=== PATIENT | female | born 1995 ===

== ENCOUNTER 2021-04-27 00:17 | Emergency (ER) | payer OTHER, SELFPAY ==
--- NOTE | ~2021-04-27 | XR_ITS ---
EXAMINATION: XR CHEST CLINICAL INFORMATION: Cough COMPARISON: 09/17/2016 TECHNIQUE: 2 views of the chest were obtained. FINDINGS: The lungs are clear with no focal consolidation. No evidence of pneumothorax, pulmonary edema, or pleural effusions. The cardiomediastinal silhouette is unremarkable. No acute osseous findings. XR/XR chest 2V IMPRESSION: No acute cardiopulmonary findings.
[2021-04-27 00:19] VITALS: BP 114/72; PULSE 112; RESP 24; TEMP 37.6; O2SAT 99; BMI 33.2
[2021-04-27] MEDS: predniSONE 20 MG TABLET 40 MG PO (01:20)
[2021-04-27] MEDS: Albuterol Sulfate 90 MCG 8 GM INHALER 4 PUFF INHALE (01:20)
[2021-04-27 01:22] LABS: COVID-19 Test Negative (Negative); IDNOW Serial# 9DD0AD1C
--- NOTE | 2021-04-27 01:34 | ED_ITS ---
HPI - Asthma General Chief Complaint: Dyspnea Stated Complaint: Trouble breathing, asthma Time Seen by Provider: 04/27/21 00:40 Source: patient Mode of arrival: ambulatory History of Present Illness HPI Narrative: 25-year-old female with history of asthma presents with increasing shortness of breath accompanied with cough for the past 2-3 days and reports corresponding chills but otherwise denies any GI or symptoms. She states that she has not received either the flu or COVID-19 vaccines. Related Data Previous Rx's Medication Instructions Recorded albuterol sulfate 2.5 mg (3 mL) INHALATION Q6H PRN 06/21/20 30 Days #360 ml nebulizers #1 ea 06/27/20 prednisone 10 mg tablet 10 mg PO DAILY 9 Days #18 tab 06/27/20 albuterol sulfate 90 mcg/actuation 1 puff PO QID #8.5 g 08/06/20 aerosol inhaler (ProAir HFA) fluticasone propionate 100 1 inh PO BID #60 cap 09/26/20 mcg/actuation blister powder for inhalation (Flovent Diskus) prednisone 20 mg tablet 40 mg PO DAILY 4 Days #8 tab 04/27/21 Allergies Allergy/AdvReac Type Severity Reaction Status Date / Time No Known Allergies Allergy Verified 06/27/20 16:07 [No Known Allergies*] Review of Systems Review of Systems: Pertinent positives and negatives as stated in HPI and 10 point review of systems is otherwise negative. [facility] Past Medical History Source: nursing notes reviewed Social History Social History Alcohol intake: never Advance Directives: No Advance Directives Information Provided: Yes Patient : No Physical Exam Vital Signs: Vital Signs: Last Vital Signs Temp 99.7 F 04/27/21 00:19 Pulse 130 H 04/27/21 03:04 Resp 22 H 04/27/21 03:04 BP 123/58 L 04/27/21 02:34 Pulse Ox 100 04/27/21 02:34 BMI result Body Mass Index 33.2 VITAL SIGNS: Reviewed. GENERAL: Well developed, well nourished, in no acute distress. HEAD: Normocephalic/atraumatic EYES: PERRLA, EOMI OROPHARYNX: no oral lesions noted, posterior pharynx clear NECK: Supple, no adenopathy LUNGS: Good inspiratory effort, bilateral expiratory wheeze noted, tachypnea. SpO2<99> CARDIOVASCULAR: Regular rate and rhythm without noted murmurs ABDOMEN: Soft, non-tender, non-distended with bowel sounds. No rigidity. No guarding. No palpable masses or hernias noted NEUROLOGIC: Alert and oriented x 4. Course Course Course Narrative: 25-year-old female with history and clinical presentation consistent with asthma exacerbation and received 2 hour long albuterol in nebulized treatments after confirmation negative COVID-19 test. On review of chest x-ray there are no acute findings and on re-evaluation patient reports significant improvement in her respiratory status. She is otherwise discharged home in stable condition on a short course of steroids. MDM - Asthma Lab Data Labs: Lab Results 04/27/21 Range/Units 00:54 COVID-19 ([facility]) Negative (Negative) COVID-19 Clin Com See Note Discharge Plan Discharge Clinical Impression: Asthma with exacerbation, Lab test negative for COVID-19 virus Patient Disposition: Home, Self-Care Instructions: Asthma (ED) Additional Instructions: 1. Resume all home medications as prescribed. Recommend using your rescue inhaler every 4 hours for the next 24 hours to help with the resolution of your symptoms. Return to the ER for worsening symptoms. Prescriptions: New prednisone 20 mg tablet 40 mg PO DAILY 4 Days Qty: 8 RF: 0 No Action albuterol sulfate 2.5 mg /3 mL (0.083 %) solution for nebulization 2.5 mg inhalation Q6H PRN (Reason: shortness of breath or wheezing) 30 Days Qty: 360 RF: 0 albuterol sulfate [ProAir HFA] 90 mcg/actuation HFA aerosol inhaler 1 puff PO QID Qty: 8.5 RF: 0 fluticasone propionate [Flovent Diskus] 100 mcg/actuation blister with device 1 inh PO BID Qty: 60 RF: 1 prednisone 10 mg tablet 10 mg PO DAILY 9 Days Qty: 18 RF: 0 (DME) nebulizers Misc See Rx Instructions .ROUTE .MEDSUPPLY Qty: 1 RF: 0
[2021-04-27] MEDS: Albuterol Sulfate (0.083%) 2.5 MG/3 ML VIAL.NEB 10 MG INHALE ×2 (01:58→03:02)
[2021-04-27 01:59] VITALS: PULSE 113; RESP 20; O2SAT 99
[2021-04-27 02:34] VITALS: BP 123/58; PULSE 122; RESP 19; O2SAT 100
[2021-04-27 03:04] VITALS: PULSE 130; RESP 22; O2SAT 98
== END 2021-04-27 04:29 | disposition home or self-care (01) ==
PROVIDERS: Emergency Provider Student in an Organized Health Care Education/Training Program
DX: J45.901 Unspecified asthma with (acute) exacerbation (principal); R06.02 Shortness of breath; R79.89 Other specified abnormal findings of blood chemistry; Z20.822 Contact with and (suspected) exposure to COVID-19; Z79.899 Other long term (current) drug therapy
CPT/HCPCS: 36415; 71046; 87635; 94640; 94644; 94645; 99283; 99285

== ENCOUNTER 2021-07-27 17:07 | Emergency (ER) | payer OTHER, SELFPAY ==
[2021-07-27 17:14] VITALS: BP 125/70; PULSE 79; RESP 16; TEMP 36.9; O2SAT 97; BMI 34.3
--- NOTE | 2021-07-27 17:58 | ED.EAR ---
HPI - Ear Problem General Chief complaint: Ear Problems <SHAWN Yao Last Filed: 07/27/21 18:23> Stated complaint: left ear pain, loss of hearing <SHAWN Yao Last Filed: 07/27/21 18:23> Time Seen by Provider: 07/27/21 17:52 <SHAWN Yao Last Filed: 07/27/21 18:23> Source: patient and family <SHAWN Yao Last Filed: 07/27/21 18:23> Mode of arrival: ambulatory <SHAWN Yao Last Filed: 07/27/21 18:23> Limitations: no limitations <SHAWN Yao Last Filed: 07/27/21 18:23> History of Present Illness HPI Narrative: 25-year-old female with a past medical history of asthma presenting to the ED with complaints of left ear pain/decreased hearing/ring to the left ear for the past 2 weeks worse today. Reports that she was seen at [facility] was prescribed Levaquin for a week and she took as prescribed although no symptomatic relief. She denies any fevers, chills, dizziness, headache, neck pain/stiffness, trouble swallowing or breathing, sore throat, chest pain or shortness of breath, cough, sputum production, loss of taste or smell, nausea/vomiting/diarrhea constipation, abdominal pain, dysuria, rashes, recent travel, recent illness, recent trauma, recent swimming, recent scuba diving, recent plane flight or any other symptoms complaints or concerns at this time. <SHAWN Yao Last Filed: 07/27/21 18:23> MD Complaint: ear pain and decreased hearing <SHAWN Yao Last Filed: 07/27/21 18:23> Location: left ear <SHAWN Yao Last Filed: 07/27/21 18:23> Duration: constant <SHAWN Yao Last Filed: 07/27/21 18:23> Severity: moderate <SHAWN Yao Last Filed: 07/27/21 18:23> Relieving factors: nothing <SHAWN Yao Last Filed: 07/27/21 18:23> Exacerbating factors: palpation <SHAWN Yao Last Filed: 07/27/21 18:23> Discharge from ear: no <SHAWN Yao Last Filed: 07/27/21 18:23> Associated symptoms ear: decreased hearing <SHAWN Yao Last Filed: 07/27/21 18:23> Related Data Home medications: Previous Rx's Medication Instructions Recorded albuterol sulfate 2.5 mg (3 mL) INHALATION Q6H PRN 06/21/20 30 Days #360 ml nebulizers #1 ea 06/27/20 albuterol sulfate 90 mcg/actuation 1 puff PO QID #8.5 g 08/06/20 aerosol inhaler (ProAir HFA) fluticasone propionate 100 1 inh PO BID #60 cap 09/26/20 mcg/actuation blister powder for inhalation (Flovent Diskus) cefdinir 300 mg capsule 300 mg PO BID 10 Days #20 cap 07/27/21 levofloxacin 500 mg tablet 500 mg PO DAILY 7 Days #7 tab 07/27/21 ofloxacin 0.3 % ear drops 10 drp OTIC (EAR) LEFT DAILY 10 07/27/21 Days ml <SHAWN Yao Last Filed: 07/27/21 18:23> Allergies/adverse reactions: Allergies Allergy/AdvReac Type Severity Reaction Status Date / Time No Known Allergies Allergy Verified 07/27/21 17:14 [No Known Allergies*] <SHAWN Yao Last Filed: 07/27/21 18:23> Review of Systems Review of Systems: Constitutional : No Weight loss, No Fever, No Chills, No Night Sweats, No Fatigue, No Malaise ENT/Mouth : + to left ear Hearing loss, + left Ear Pain, No Nasal Congestion, No Sinus Pain, No Hoarseness, No sore throat, No Rhinorrhea, No Swallowing Difficulty Eyes: No Eye Pain, No Swelling, No Redness, No Foreign Body, No Discharge, No Vision Changes Cardiovascular : No Chest Pain, No SOB, No Dyspnea on Exertion, No Orthopnea, No Edema, No Palpitations Respiratory : No Cough, No Sputum, No Wheezing, No Smoke Exposure, No Dyspnea Gastrointestinal : No Nausea, No Vomiting, No Diarrhea, No Constipation, No abdominal Pain, No Hematochezia, No Melena Genitourinary : no irregular bleeding, No Dysuria, No Urinary Frequency, No Hematuria, No Urinary Incontinence, No Urgency, No Flank Pain, No Urinary Flow Changes, No Hesitancy Musculoskeletal : No joint pain, No Myalgias, No Joint Swelling Skin : No Skin Lesions, No rash Neuro : No Weakness, No Numbness, No Paresthesias, No Loss of Consciousness, No Dizziness, No Headache Psych : No Anxiety/Panic, No Depression, No SI/HI/AH/VH, No Social Issues, Heme/Lymph: No Bruising, No Bleeding,No Lymphadenopathy Endocrine : No Polyuria, No Polydipsia, No Temperature Intolerance <SHAWN Yao - Last Filed: 07/27/21 18:23> Yes all other systems are reviewed and are negative <SHAWN Yao - Last Filed: 07/27/21 18:23> [facility] Past Medical History Attestation statement: The following information was validated with the patient. <SHAWN Yao - Last Filed: 07/27/21 18:23> Surgical History: Surgical History No pertinent past surgical history <SHAWN Yao - Last Filed: 07/27/21 18:23> Family History Family History: Family History Mother Diabetes Active asthma Father High blood pressure Diabetes Active asthma <SHAWN Yao - Last Filed: 07/27/21 18:23> Social History Social History: Social History Housing: House Alcohol intake: current Alcohol intake frequency: holidays/special occasions only Patient Tobacco Use Status: Never used Tobacco Second Hand Smoke Exposure: No Advance Directives: No Advance Directives Information Provided: No service: No Current occupational status: disabled Cognitive needs: No Hearing needs: No Vision needs: No <SHAWN Yao - Last Filed: 07/27/21 18:23> Physical Exam Vital Signs: Vital Signs: Last Vital Signs Temp 98.5 F 07/27/21 17:14 Pulse 79 07/27/21 17:14 Resp 16 07/27/21 17:14 BP 125/70 07/27/21 17:14 Pulse Ox 97 03/11/22 17:14 BMI result Body Mass Index 34.3 vital signs have been reviewed as normal and appeared to be correct. Blood pressure normal. Heart rate normal. Respiration rate normal. Temperature normal. Oxygen saturation normal. <SHAWN Yao - Last Filed: 07/27/21 18:23> Appearance: Alert. Oriented X3. No acute distress. Head: Normal external exam. Normocephalic. Atraumatic. Eyes: PERRLA. EOMI. Conjunctiva and sclera normal. Eyelids normal. ENT: Right external ear canal within normal limits no tenderness off patient. Tympanic membrane to the right ear canal within normal limits. Patient with tenderness up patient with manipulation of the pinna and tragus of the left ear. She does have erythema and edema to the left ear canal and her tympanic membrane is erythematous/bulging with loss of normal landmarks and decreased light reflex consistent with otitis media. Bilateral tympanic membranes are intact not perforated. Pharynx normal. Uvula midline. Moist mucous membranes. No lesions/ulcerations or masses noted on the tongue. Normal voice. No trismus noted. No drooling noted. No muffled voice noted. Neck: Normal inspection. Neck supple. FROM. No adenopathy. Thyroid Normal. No tracheal deviation noted. No crepitus is noted. No meningeal signs. No neck mass noted. CVS: Normal heart rate and rhythm. Heart sound normal. Pulses normal throughout. No murmurs/rales/gallops. Respiratory: No respiratory distress. Painless inspiration. Breath sounds normal. No wheezes/rales/rhonchi noted. Chest nontender. No accessory muscle usage noted or decreased air movement noted. No signs of trauma. Back: Full range of motion noted. Skin: Skin warm and dry. Normal skin color. Normal skin turgor. No rashes/lesions/lacerations noted. Extremities:Extremities exhibit normal range of motion and nontender. Neuro: Oriented X 3. No motor deficit. No sensory deficit. Reflexes normal. Normal steady gait. No focal neuro deficits noted. CN's II-XII intact bilaterally? Vascular: + radial pulses/+ 2 distal pedal pulses/+2 dorsalis pedis b/l. Normal cap refill. No cyanosis noted to upper extremity nails and lower extremity toes nails. <SHAWN Yao - Last Filed: 07/27/21 18:23> Course Course Course Narrative: 25-year-old female with a past medical history of asthma presenting to the ED with complaints of left ear pain/decreased hearing/ring to the left ear for the past 2 weeks worse today. Reports that she was seen at [facility] was prescribed Levaquin for a week and she took as prescribed although no symptomatic relief. She denies any fevers, chills, dizziness, headache, neck pain/stiffness, trouble swallowing or breathing, sore throat, chest pain or shortness of breath, cough, sputum production, loss of taste or smell, nausea/vomiting/diarrhea constipation, abdominal pain, dysuria, rashes, recent travel, recent illness, recent trauma, recent swimming, recent scuba diving, recent plane flight or any other symptoms complaints or concerns at this time. On exam patient is noted to have a left otitis externa and left otitis media. Tympanic membranes are intact. Not perforated. Therefore at this time will DC home with Augmentin along with ear nose and throat referral and instructions return if any new or worsening symptoms to follow up with primary care provider as well. Patient understands agrees with this plan. <SHAWN Yao - Last Filed: 07/27/21 18:23> [facility] - Ear Medical Records Attestation: I reviewed the patient's medical records. <SHAWN Yao - Last Filed: 07/27/21 18:23> Discharge Plan Discharge Clinical Impression: Otitis externa, Otitis media <SHAWN Yao - Last Filed: 07/27/21 18:23> Patient Disposition: Home, Self-Care <SHAWN Yao - Last Filed: 07/27/21 18:23> Instructions: Otitis Externa (ED), Ear Infection (ED) <SHAWN Yao Last Filed: 07/27/21 18:23> Prescriptions: New ofloxacin 0.3 % drops 10 drp otic (ear) left DAILY 10 Days 0RF cefdinir 300 mg capsule 300 mg PO BID 10 Days Qty: 20 0RF No Action albuterol sulfate 2.5 mg /3 mL (0.083 %) solution for nebulization 2.5 mg inhalation Q6H PRN (Reason: shortness of breath or wheezing) 30 Days Qty: 360 0RF albuterol sulfate [ProAir HFA] 90 mcg/actuation HFA aerosol inhaler 1 puff PO QID Qty: 8.5 0RF fluticasone propionate [Flovent Diskus] 100 mcg/actuation blister with device 1 inh PO BID Qty: 60 1RF (DME) nebulizers Misc See Rx Instructions .ROUTE .MEDSUPPLY Qty: 1 0RF Rx Instructions: As directed levofloxacin 500 mg tablet 500 mg PO DAILY 7 Days Qty: 7 0RF <SHAWN Yao - Last Filed: 07/27/21 18:23> Referrals: Abhijit Milian PA-C [Primary Care Provider] - 2 days Marcin Trotter [Physician] - 2 days <SHAWN Yao - Last Filed: 07/27/21 18:23> Stand Alone Forms: Work/School Release <SHAWN Yao - Last Filed: 07/27/21 18:23> Interventions: ED Discharge Assessment Last Done: 07/27/21 18:26 <SHAWN Yao - Last Filed: 07/27/21 18:23> Discharge Date/Time: 07/27/21 18:27 <SHAWN Yao - Last Filed: 07/27/21 18:23> Print Language: Upper Sorbian <SHAWN Yao - Last Filed: 07/27/21 18:23>
== END 2021-07-27 18:27 | disposition home or self-care (01) ==
LOC: HO.ED 18:13
PROVIDERS: Emergency Provider Emergency Medicine; PCP Physician Assistant
DX: H66.92 Otitis media, unspecified, left ear (principal); H60.92 Unspecified otitis externa, left ear
CPT/HCPCS: 99283

== ENCOUNTER 2024-03-11 09:47 | Outpatient (AMB) | payer OTHER, SELFPAY ==
--- NOTE | 2024-03-11 10:11 | MHC.OFFWIV ---
Intake Vital Signs 03/11/24 10:14 Height 5 ft Weight 178 lb BMI 34.8 BP 126/80 Blood Pressure Location Rt brachial Position Sitting Pulse 74 Pulse Source Pulse Oximeter Pulse Oximetry (%) 98 Oxygen Delivery Method Room Air Intake Visit Reasons: ACTIVITIES THERAPIST-rash lower belly Intake Note: Patient here for rash under belly that has been present for about a week or so. Patient Tobacco Use Status: Never used Tobacco Allergies No Known Allergies [No Known Allergies*] Allergy (Verified 03/11/24 10:14) Do you need a note to return to daycare/school/sports/work: No HPI HPI Comments History of Present Illness Details Patient is a 28-year-old female complaining of a rash and the under part of her belly, in the fold. She states it has been there for about a week and it is a little bit itchy and it seems to be spreading. She has not tried putting any medications on it because she did not want to make it worse. She denies any fevers or bug bites. PENDING SALE TO [facility] Surgical History No pertinent past surgical history Family History Mother Diabetes Active asthma Father High blood pressure Diabetes Active asthma Social History Housing: House Alcohol intake: current Alcohol intake frequency: holidays/special occasions only Patient Tobacco Use Status: Never used Tobacco Second Hand Smoke Exposure: No service: No Current occupational status: disabled Cognitive needs: No Hearing needs: No Vision needs: No Review of Systems Const All systems reviewed & are unremarkable except as noted in HPI and below Physical Exam Vital Signs: Last Vital Signs Pulse 74 03/11/24 10:14 BP 126/80 03/11/24 10:14 Pulse Ox 98 03/11/24 10:14 Oxygen Delivery Method Room Air 03/11/24 10:14 BMI result Body Mass Index 34.8 Const General: cooperative, healthy appearing, comfortable and no acute distress Orientation/consciousness: patient oriented x3 Limitations: no limitations HEENT Head: Yes normal to inspection Eyes General: appearance normal, both eyes and all related structures Resp Effort & Inspection: normal respiratory effort and able to speak in complete sentences Skin Other: Bottom fold of abdomen has a 4cm x 5cm area of erythema with some dried edges. No warmth, no induration, no ecchymosis Neuro General: patient oriented x3 Assessment & Plan Assessment & Plan (1) Tinea corporis: Code(s): B35.4 - Tinea corporis Plan: Likely a fungal rash, based on location and presentation. Recommended using [id number] clotrimazole for a few days. If this does not seem to be helping it, she should try hard cortisone because of could also be an allergic dermatitis, however this is less likely. If neither 1 of these treatments work, she should follow up with her PCP Plan See above Coding Level of Care Code Est Pt Level 3 (67299) Diagnoses Tinea corporis B35.4
[2024-03-11 10:14] VITALS: BP 126/80; PULSE 74; O2SAT 98; BMI 34.8
== END 2024-03-11 10:43 | disposition home or self-care (01) ==
PROVIDERS: PCP Physician Assistant; Visit Provider Physician Assistant
DX: B35.4 Tinea corporis (principal)

== ENCOUNTER → 2024-03-11 09:47 | Outpatient (BNVA) | payer OTHER, SELFPAY | PROVIDERS: PCP Physician Assistant; Visit Provider Physician Assistant | DX: B35.4 Tinea corporis (principal) | CPT/HCPCS: 99212 ==

== ENCOUNTER 2024-03-18 09:57 | Emergency (ER) | payer OTHER, SELFPAY ==
[2024-03-18 10:04] VITALS: BP 129/72; PULSE 98; RESP 16; TEMP 36.8; O2SAT 100; BMI 37.6
--- NOTE | 2024-03-18 11:03 | ED_ITS ---
HPI - General Adult General Chief complaint: General Medical Stated complaint: abd infection-cream unsuccessful Time Seen by Provider: 03/18/24 10:55 Source: patient Mode of arrival: ambulatory Limitations: no limitations History of Present Illness ED Provider: EMI JAIN PA-C HPI narrative: 28 year old female with no significant past medical history presents to the ED today for evaluation of rash to lower abdomen x2 weeks. Patient was seen at [facility] on 03/11 for same, discharged home with clotrimazole ointment which she has been applying daily. States this helps relieve the itching however the rash is unchanged. Does not appear to be spreading. Denies drainage from the rash. Denies fever, chills, N/V. Denies new detergents, soaps, lotions. Besides the clotrimazole, denies any new medications or antibiotics. Denies recent tick or insect bites. Vaccinations up-to-date. Denies concern for STI. Related Data Previous Rx's ?Medication ?Instructions ?Recorded albuterol sulfate 2.5 mg/3 mL 2.5 mg (3 mL) inhalation Q6H PRN 06/21/20 (0.083 %) solution for nebulization shortness of breath or wheezing 30 days #360 mL nebulizers #1 ea 06/27/20 albuterol sulfate 90 mcg/actuation 1 puff PO QID #8.5 grams 08/06/20 aerosol inhaler (ProAir HFA) fluticasone propionate 100 1 inh PO BID #60 caps 09/26/20 mcg/actuation blister powder for inhalation (Flovent Diskus) cefdinir 300 mg capsule 300 mg PO BID Otitis media 10 days 07/27/21 #20 caps fluticasone propionate 50 2 spray intranasal DAILY 30 days 08/01/21 mcg/actuation nasal #16 grams spray,suspension (Flonase Allergy Relief) terbinafine HCl 250 mg tablet 250 mg PO DAILY 2 weeks #14 tabs 03/18/24 Allergies Allergy/AdvReac Type Severity Reaction Status Date / Time No Known Allergies Allergy Verified 03/18/24 10:05 [No Known Allergies*] Review of Systems 2 Review of Systems: Constitutional: No fever, chills, fatigue, night sweats, weight changes ENT/Mouth: No ear pain, hearing loss, nasal congestion, sinus pain, rhinorrhea, sore throat Eyes: No eye pain, swelling, redness, vision changes, discharge Cardio: No chest pain, palpitations, BROWN, orthopnea, peripheral edema Pulm: No SOB, cough, sputum, wheezing, dyspnea, hemoptysis GI: No nausea, vomiting, hematemesis, abdominal pain, diarrhea, constipation, hematochezia, melena : No irregular bleeding, dysuria, frequency, urgency, hesitancy, hematuria, flank pain, urinary flow changes, urinary incontinence or retention MSK: No back pain, neck pain, joint pain, myalgias Skin: No lesions, +rash to pannus Neuro: No weakness, numbness, paresthesias, LOC, dizziness, headache Psych: No anxiety/panic, depression, SI/HI, AH/VH All other systems reviewed and are negative. [facility] Past Medical History Attestation statement: The following information was validated with the patient. Source: old records reviewed and nursing notes reviewed Surgical History No pertinent past surgical history Family History Family History Mother Diabetes Active asthma Father High blood pressure Diabetes Active asthma Social History Social History Housing: House Alcohol intake: current Alcohol intake frequency: holidays/special occasions only Patient Tobacco Use Status: Never used Tobacco Second Hand Smoke Exposure: No Advance Directives: No Advance Directives Information Provided: Yes Do you have a plan to hurt others: No Plan service: No Current occupational status: disabled Cognitive needs: No Hearing needs: No Vision needs: No Physical Exam ED Vital Signs: Vital Signs - 24 hr 03/18/24 10:04 03/18/24 12:15 Temperature 98.2 F 98.2 F Pulse Rate 98 98 Respiratory Rate 16 16 Blood Pressure 129/72 129/72 Pulse Oximetry 100 100 Oxygen Delivery Method Room Air Room Air BMI result Body Mass Index 37.6 Vital signs stable, afebrile General: Well appearing, in no acute distress. Skin: see below of pannicular skin fold. no sloughing. nondermatomal pattern. no target lesions. spares palms/soles/webbed spaces/mucous membranes. Head: Normocephalic, atraumatic. EENT: Hearing is intact b/l. PERRLA. Moist mucous membranes.? Neck: Supple without LAD Cardiac: Chest wall symmetric. RRR Lungs: Normal respiratory effort without accessory muscle use. CTA bilaterally.? Abdomen: see above. Soft, non-tender, non-distended. No rebound tenderness or guarding. Back: No midline spinous or paraspinal tenderness. No step off deformity. Ext: Upper and lower extremities atraumatic, without tenderness, deformity, swelling or erythema. Full ROM throughout. Neuro: AOx3. Normal speech. Ambulating with steady gait. Psych: Appropriate mood and affect. Responds appropriately to questions. Medical Decision Making Medical Decision Making MDM Narrative: 28 year old female with no significant past medical history presents to the ED today for evaluation of rash to lower abdomen x2 weeks. Vital signs stable. Afebrile. There is an ertyematous rash noted to right pannicular skin fold. no sloughing. no target lesions. nondermatomal pattern. Spares palms, soles, mucous membranes and web spaces. Does not involve genitalia. No inguinal LAD. Rash is consistent with fungal infection of skin fold. Differential diagnosis includes contact/atopic/eczematous dermatitis, psoriasis. History and exam findings not consistent with lyme/tick bourne illness, herpes zoster/simplex, scabies, HFM,? dangerous etiologies of rash such as SJS/TEN, or secondary dangerous causes such as petechial rashes from thrombocytopenia or rickettsial infections.?No concern for cellulitis. Plan at this time is to treat symptomatically, instruct to follow up with PCP or derm PRN. Given patient has been on a topical antifungal cream x1 week without improvement, will switch to oral antifungal. Differential Diagnosis Differential Diagnoses: The differential diagnosis associated with the presentation includes as above. Admission/Observation not indicated. Prescription Management I considered prescription management with: Other (terbinafine) Social Determinants Patient?s care significantly limited by Social Determinants of Health including: Other Social Determinant of Health Critical Care Time Critical Care Time Critical Care Time: No Discharge Plan Discharge Clinical Impression: Fungal infection of skin Patient Disposition: Home, Self-Care Instructions: Skin Yeast Infection (ED) Additional Instructions: Your physical exam is consistent with a fungal skin infection. Please discontinue use of topical anti-fungal. Instead, an oral antifungal has been sent to your pharmacy. Take this as prescribed daily for the next two weeks. Make sure you keep the area clean and dry. You may apply power to the area to help absorb moisture. Follow up with PCP. Return with new or worsening symptoms. In the case of an emergency call 911. Prescriptions: New terbinafine HCl 250 mg tablet 250 mg PO DAILY 14 Days Qty: 14 0RF No Action albuterol sulfate 2.5 mg /3 mL (0.083 %) solution for nebulization 2.5 mg inhalation Q6H PRN (Reason: shortness of breath or wheezing) 30 Days Qty: 360 0RF albuterol sulfate [ProAir HFA] 90 mcg/actuation HFA aerosol inhaler 1 puff PO QID Qty: 8.5 0RF fluticasone propionate [Flovent Diskus] 100 mcg/actuation blister with device 1 inh PO BID Qty: 60 1RF cefdinir 300 mg capsule 300 mg PO BID 10 Days Qty: 20 0RF (DME) nebulizers Misc See Rx Instructions .ROUTE .MEDSUPPLY Qty: 1 0RF Rx Instructions: As directed fluticasone propionate [Flonase Allergy Relief] 50 mcg/actuation spray,suspension 2 spray intranasal DAILY 30 Days Qty: 16 1RF Rx Instructions: administer into each nostril Referrals: Abhijit Milian PA-C [Primary Care Provider] - Interventions: ED Discharge Assessment Last Done: 03/18/24 12:15 Discharge Date/Time: 03/18/24 12:16 Print Language: Divehi
[2024-03-18 12:15] VITALS: BP 129/72; PULSE 98; RESP 16; TEMP 36.8; O2SAT 100
== END 2024-03-18 12:16 | disposition home or self-care (01) ==
PROVIDERS: Emergency Provider Emergency Medicine Emergency Medical Services; PCP Physician Assistant
DX: B36.9 Superficial mycosis, unspecified (principal); R21 Rash and other nonspecific skin eruption
CPT/HCPCS: 99282; 99283

== ENCOUNTER 2024-03-22 14:35 | Outpatient (AMB) | payer OTHER, SELFPAY ==
[2024-03-22 14:37] VITALS: BP 128/80; PULSE 102; O2SAT 99; BMI 37.1
--- NOTE | 2024-03-22 14:37 | A.OFFPC_ITS ---
Vital Signs 03/22/24 14:37 Height 5 ft Weight 190 lb BMI 37.1 BP 128/80 Blood Pressure Location Lt brachial Position Sitting Pulse 102 H Pulse Source Pulse Oximeter Pulse Oximetry (%) 99 Oxygen Delivery Method Room Air Intake Visit Reasons: rash Intake Note: pt c/o rash all over body [id number] with no relief Manager Assessment Required: No Allergies No Known Allergies [No Known Allergies*] Allergy (Verified 03/22/24 14:48) Medication List - Last Reconciled 03/22/24 by Rach Barnes PA-C albuterol sulfate 2.5 mg (3 mL) inhalation Q6H PRN 30 days albuterol sulfate 90 mcg/actuation (ProAir HFA) 1 puff PO QID fluticasone propionate 100 mcg/actuation (Flovent Diskus) 1 inh PO BID fluticasone propionate 50 mcg/actuation (Flonase Allergy Relief) 2 sprays intranasal DAILY 30 days nebulizers As directed terbinafine HCl 250 mg PO DAILY 2 weeks Tobacco use date assessed: 03/22/24 Dental Screening Dental Screen Date: 03/22/24 HPI rash HPI Details 28-year-old female with past medical his tory of asthma last seen by [facility] July 2021 coming in for acute problem. In review of the notes, patient was seen in [facility] 03/18/2024 for rash to the lower abdomen x2 weeks and was seen a week prior by urgent care given clotrimazole ointment and discharged home at that time. Patient had been using clotrimazole cream without good relief patient was given oral antifungal medication terbinafine and discharged home. She has been on the terbinafine for 3 days and feels has been slightly improving. The rash on her abdomen had spread to her bilateral antecubital fossa and dorsal aspect of the hands. The rash is itchy and uncomfortable but denies any drainage from the lesions or fevers PFSH Surgical History No pertinent past surgical history Family History Mother Diabetes Active asthma Father High blood pressure Diabetes Active asthma Social History Housing: House Alcohol intake: current Alcohol intake frequency: holidays/special occasions only Patient Tobacco Use Status: Never used Tobacco Second Hand Smoke Exposure: No service: No Current occupational status: disabled Cognitive needs: No Hearing needs: No Vision needs: No Questionnaire Thrive Questionnaire Date Thrive assessed: 07/17/21 AUDIT C Alcohol Use Questionnaire (AUDIT-C) 1. How often do you have a drink containing alcohol?: Monthly or less 2. How many drinks containing alcohol do you have on a typical day when you are drinking?: 1 or 2 3. How often do you have six or more drinks on one occasion?: Never Total Score: 1 Score Reviewed/Action Taken: No MERCEDES-7 AMB Questionnaire MERCEDES-7 Date MERCEDES - 7 assessed: 07/17/21 Source: Developed by Drs. Bob Taylor, Anu Farr, Bryson Kemp and colleagues, with an educational maldonado from [employer]. Review of Systems Const Denies body aches, Denies chills and Denies fever(s) Eyes Reports no additional complaints Card Denies chest pain and Denies dyspnea Resp Denies dyspnea GI Denies abdominal pain Reports no additional complaints Musc Reports no additional complaints and Denies abnormal gait Skin/Breast Reports system reviewed and no additional complaints, except as documented Neuro Denies abnormal gait Psych Reports no additional complaints Physical exam (Primary Care) Vital Signs: Last Vital Signs Pulse 102 H 03/22/24 14:37 BP 128/80 03/22/24 14:37 Pulse Ox 99 03/22/24 14:37 Oxygen Delivery Method Room Air 03/22/24 14:37 BMI result Body Mass Index 37.1 Tobacco/Smoking Status: Tobacco use Status Tobacco use date assessed 03/22/24 03/22/24 14:38 Patient Tobacco Use Status Never used Tobacco 03/22/24 14:38 Thrive Assessment: Date of Thrive Assessment Date Thrive assessed 07/17/21 03/22/24 14:38 Const General: cooperative, healthy appearing, comfortable and no acute distress Orientation/consciousness: patient oriented x3 HENMT Head: Yes normocephalic Ears: hearing grossly normal bilaterally General nose exam: Normal external nose present Eyes General: appearance normal, both eyes and all related structures Conjunctivae: conjunctivae normal Neck Neck: Yes full ROM and Yes no lymphadenopathy Resp Effort & Inspection: normal respiratory effort Auscultation: clear to auscultation bilaterally, no crackles, no rales, no rhonchi and no wheezes Cardio Rate: regular rate Rhythm: regular rhythm Skin Other: beefy, red, well demarcated rash with sattelite lesions on the lower abdomen and into the groin and thighs. Also has scattered areas of dry, flaky rash on the dorsal aspect of the hands and bilateral antecubital fossa. Neuro General: patient oriented x3 Gait exam (Neuro): Normal gait present Extrem General: Yes normal to inspection, Yes full ROM and No edema Psych Affect: normal affect Attitude: cooperative Insight: Good insight present (Psych) Judgement: Good judgement present (Psych) Coding Level of Care Code Est Pt Level 3 (11378) Diagnoses Rash R21 Assessment & Plan Assessment & Plan (1) Rash: Code(s): R21 - Rash and other nonspecific skin eruption Category: Medical Plan: Patient has beefy red rash on the abdomen consistent with fungal infection. Cora ent is currently taking Terbinifine and advised to have liver labs drawn. Also given Nystatin powder to use while taking this medication. IF rash does not clear advised to follow up for repeat evaluation. For hands and arms advised to use Aquaphor or Vaseline and if does not resolve can consider topical steroid. Plan This note was constructed using voice recognition software. While every effort has been made to ensure accuracy and porter luggage, still areas may have been included sometimes these areas may affect the content or meeting of the given symptoms. Total time spent caring for the patient today was 20 minutes. This includes time spent before the visit reviewing the chart, time spent during the visit, and time spent after the visit and documentation. Orders: Orders Comprehensive Met. Panel Today Z00.00 - Encounter for general adult medical examination without abnormal findings Medications: New nystatin 1 appl topical DAILY 30 grams 0RF
== END 2024-03-22 15:16 | disposition home or self-care (01) ==
LOC: HO.HMCH 14:36
PROVIDERS: PCP Physician Assistant
DX: R21 Rash and other nonspecific skin eruption (principal)

== ENCOUNTER 2024-03-22 14:35 | Outpatient (REF) | payer OTHER, SELFPAY ==
[2024-03-22 16:34] LABS: Alanine Aminotransferase 15 U/L (0-31); Albumin Level 4.3 g/dL (3.5-5.0); Alkaline Phosphatase 78 U/L (39-117); Anion Gap 13 (12-20); Aspartate Amino Transferase 18 U/L (5-31); Bilirubin Total 0.4 mg/dL (0.0-1.0); Blood Urea Nitrogen 8 mg/dL (9-16); Calcium 9.6 mg/dL (8.4-10.2); Carbon Dioxide 24 mmol/L (22-29); Chloride 107 mmol/L (96-108); Estimated Glomerular Filt Rate > 60; Glucose Random 100 mg/dL (60-115); Potassium 3.5 mmol/L (3.3-5.1); Sodium 140 mmol/L (135-145); Total Protein 7.6 g/dL (6.5-8.0)
== END 2024-03-22 14:36 | disposition home or self-care (01) ==
LOC: HO.LAB 14:35
PROVIDERS: PCP Physician Assistant
DX: Z00.00 Encounter for general adult medical examination without abnormal findings (principal); R21 Rash and other nonspecific skin eruption
CPT/HCPCS: 36415; 80053; 99212

== ENCOUNTER 2024-04-01 15:25 | Outpatient (AMB) | payer OTHER, SELFPAY ==
[2024-04-01 15:26] VITALS: BP 126/70; PULSE 77; O2SAT 97; BMI 37.1
--- NOTE | 2024-04-01 15:26 | A.OFFPC_ITS ---
Vital Signs 04/01/24 15:26 Height 5 ft Weight 190 lb BMI 37.1 BP 126/70 Blood Pressure Location Lt brachial Position Sitting Pulse 77 Pulse Source Pulse Oximeter Pulse Oximetry (%) 97 Oxygen Delivery Method Room Air Intake Visit Reasons: [facility] 03/22 rash Intake Note: Patient is here for hospital discharge follow up. Patient was discharged from [facility] on 03/22/24 Allergies No Known Allergies [No Known Allergies*] Allergy (Verified 04/01/24 15:27) Medication List - Last Reconciled 04/01/24 by Rach Barnes PA-C albuterol sulfate 2.5 mg (3 mL) inhalation Q6H PRN 30 days albuterol sulfate 90 mcg/actuation (ProAir HFA) 1 puff PO QID cephalexin 500 mg PO TID cetirizine 10 mg PO DAILY PRN fluticasone propionate 100 mcg/actuation (Flovent Diskus) 1 inh PO BID fluticasone propionate 50 mcg/actuation (Flonase Allergy Relief) 2 sprays intranasal DAILY 30 days nebulizers As directed nystatin 1 appl topical DAILY terbinafine HCl 250 mg PO DAILY 2 weeks Tobacco use date assessed: 03/22/24 Dental Screening Dental Screen Date: 03/22/24 HPI [facility] 03/22 rash HPI Details 28-year-old female with past medical his tory of asthma last seen March 2024 coming in for acute problem. In review of the notes, patient was [place] [facility] and given terbinafine for worsening pruritic rash. She was seen in [facility] ED for this similar problem 03/24/2024 at that time was found to have cellulitis and switch to oral steroids and antibacterial agent and recommended dermatology referral. Patient states 2 days after being seen the rash spread to inner thighs other parts of the body. The prednisone given by [facility] helped with the rash and w as almost disappeared but since discontinuing the prednisone 4 days ago the rash has started to reappear. The rash is itchy and is not painful or draining. Cetirizine has been helping with the itchiness. [facility] Surgical History No pertinent past surgical history Family History Mother Diabetes Active asthma Father High blood pressure Diabetes Active asthma Social History Housing: House Alcohol intake: current Alcohol intake frequency: holidays/special occasions only Patient Tobacco Use Status: Never used Tobacco Second Hand Smoke Exposure: No service: No Current occupational status: disabled Cognitive needs: No Hearing needs: No Vision needs: No Questionnaire Thrive Questionnaire Date Thrive assessed: 04/01/24 I am a: Patient What is your living situation today?: I have a steady place to live Within the past 12 months, did the food you bought not last and you didn't have the money to get more?: Never true Within the past 12 months, did you worry whether your food would run out before you got money to buy more?: Never true Do you have trouble paying for medicines?: No Do you have trouble getting transportation to medical appointments?: No Do you have trouble paying your heating and electricity bill?: No Do you have trouble taking care of your child, family member or friend?: No Do you have trouble with day-to-day activities such as bathing, preparing meals, shopping, managing finances, etc.?: No Are you currently unemployed and looking for a job?: No Are you interested in more education?: No Please select the resources that you would like help with: None Currently or been in a relationship where the following occur: No concerns reported THRIVE Score: 0 AUDIT C Alcohol Use Questionnaire (AUDIT-C) 1. How often do you have a drink containing alcohol?: Monthly or less 2. How many drinks containing alcohol do you have on a typical day when you are drinking?: 1 or 2 3. How often do you have six or more drinks on one occasion?: Never Total Score: 1 Score Reviewed/Action Taken: No MERCEDES-7 AMB Questionnaire MERCEDES-7 Date MERCEDES - 7 assessed: 04/01/24 Source: Developed by Drs. Bob Taylor, Anu Farr, Bryson Kemp and colleagues, with an educational maldonado from [employer]. Review of Systems Const Denies body aches, Denies chills, Denies fever(s) and Denies poor appetite Eyes Reports no additional complaints ENT Reports no additional complaints Card Denies chest pain, Denies lightheadedness and Denies dyspnea Resp Denies dyspnea GI Denies abdominal pain, Denies nausea and Denies vomiting Reports no additional complaints Musc Reports no additional complaints and Denies abnormal gait Skin/Breast Details: Itchy rash on bilateral thighs, antecubital fossa and pubic area Neuro Denies abnormal gait Psych Reports no additional complaints Physical exam (Primary Care) Vital Signs: Last Vital Signs Pulse 77 04/01/24 15:26 BP 126/70 04/01/24 15:26 Pulse Ox 97 04/01/24 15:26 Oxygen Delivery Method Room Air 04/01/24 15:26 BMI result Body Mass Index 37.1 Tobacco/Smoking Status: Tobacco use Status Tobacco use date assessed 03/22/24 04/01/24 15:27 Patient Tobacco Use Status Never used Tobacco 04/01/24 15:27 Thrive Assessment: Date of Thrive Assessment Date Thrive assessed 04/01/24 04/01/24 15:27 Currently or been in a relationship where the following occur: No concerns reported Const General: cooperative, healthy appearing, comfortable and no acute distress Orientation/consciousness: patient oriented x3 HENMT Head: Yes normocephalic Ears: hearing grossly normal bilaterally General nose exam: Normal external nose present Eyes General: appearance normal, both eyes and all related structures Conjunctivae: conjunctivae normal Neck Neck: Yes full ROM and Yes no lymphadenopathy Resp Effort & Inspection: normal respiratory effort Auscultation: clear to auscultation bilaterally, no crackles, no rales, no rhonchi and no wheezes Cardio Rate: regular rate Rhythm: regular rhythm Skin Other: Multiple patches of raised, thickened, red and dry flaky rash on flexor services and pubic area. No drainage or warmth. General skin exam: no rashes or lesions noted Neuro General: patient oriented x3 Gait exam (Neuro): Normal gait present Extrem General: Yes normal to inspection, Yes full ROM and No edema Psych Affect: normal affect Attitude: cooperative Insight: Good insight present (Psych) Judgement: Good judgement present (Psych) Coding Level of Care Code Est Pt Level 3 (34362) Diagnoses Rash R21 Assessment & Plan Assessment & Plan (1) Rash: Code(s): R21 - Rash and other nonspecific skin eruption Category: Medical Plan: Rash looks most consistent with atopic dermatitis. Improved with steroids and cetirizine. Refilled cetirizine at this time to help with the pruritus. No evidence of infection at this time advised patient to continue to monitor her symptoms. We will trial topical steroid advised patient not to use his medication more than 2 weeks and avoid sensitive areas. Referral placed for Dermatology for further workup. Plan This note was constructed using voice recognition software. While every effort has been made to ensure accuracy and women's studies professor, still areas may have been included sometimes these areas may affect the content or meeting of the given symptoms. Total time spent caring for the patient today was 20 minutes. This includes time spent before the visit reviewing the chart, time spent during the visit, and time spent after the visit and documentation. Orders: Referrals Dermatology Referral R21 - Rash and other nonspecific skin eruption Medications: New cetirizine 10 mg PO DAILY 90 tabs 1RF triamcinolone acetonide 0.5% 1 appl topical BID 15 grams 0RF Discontinued terbinafine HCl Discontinued Reason: Patient no longer taking 250 mg PO DAILY 2 weeks 14 tabs 0RF
== END 2024-04-01 15:56 | disposition home or self-care (01) ==
DX: R21 Rash and other nonspecific skin eruption (principal)

== ENCOUNTER → 2024-04-01 15:25 | Outpatient (BNVA) | payer OTHER, SELFPAY | DX: R21 Rash and other nonspecific skin eruption (principal) | CPT/HCPCS: 99212 ==

== ENCOUNTER 2024-06-11 09:50 | Outpatient (REF) | payer OTHER, SELFPAY | END 2024-06-11 09:51 | disposition home or self-care (01) | LOC: HO.LAB 09:50 | PROVIDERS: Visit Provider Physician Assistant | DX: J45.21 Mild intermittent asthma with (acute) exacerbation (principal) | CPT/HCPCS: 99212 ==

== ENCOUNTER 2024-06-11 09:50 | Outpatient (REF) | payer OTHER, SELFPAY ==
[2024-06-11 16:23] LABS: Influenza A PCR NEGATIVE (Negative); Influenza B PCR NEGATIVE (Negative); Resp Syncy Virus RNA Qual PCR NEGATIVE (Negative); SARS COV2 PCR INHOUSE NEGATIVE (Negative)
== END 2024-06-11 09:51 | disposition home or self-care (01) ==
LOC: HO.LNP 09:50
PROVIDERS: Visit Provider Physician Assistant
DX: R09.89 Other specified symptoms and signs involving the circulatory and respiratory systems (principal); Z11.52 Encounter for screening for COVID-19; Z13.83 Encounter for screening for respiratory disorder NEC
CPT/HCPCS: 0241U